=== PATIENT | female | born 1985 ===

== ENCOUNTER 2018-05-30 11:22 | Inpatient (IN) ==
[2018-05-30] MEDS ORDERED: fentaNYL Inj 100 MCG/2 ML VIAL IV PRN (13:26)
[2018-05-30] MEDS ORDERED: CITRIC ACID/SODIUM CITRATE 30 ML CUP PO PRN (13:26)
[2018-05-30] MEDS ORDERED: CefOXitin Inj 2 GM in Sodium Chloride 0.9% 100 ML IV PRN (13:26)
[2018-05-30] MEDS ORDERED: diphenhydrAMINE 50 MG/1 ML VIAL IVP PRN (13:26)
[2018-05-30] MEDS ORDERED: FAMOTIDINE 20 MG/2 ML VIAL IVP PRN ×2 (13:26)
[2018-05-30] MEDS ORDERED: LIDOCAINE HCL 2 % 10 ML JELLY URO-JECT TOPICAL PRN (13:26)
[2018-05-30] MEDS ORDERED: Lidocaine 1% 10 MG/ML - 20 ML VIAL SUBCUT PRN (13:26)
[2018-05-30] MEDS ORDERED: Phenylephrine Inj 50 MCG in Sodium Chloride 0.9% vial 0.5 ML IVP PRN (13:26)
[2018-05-30] MEDS ORDERED: ePHEDrine Inj 50 MG/ML AMP IVP PRN (13:26)
[2018-05-30] MEDS ORDERED: Carboprost Inj 250 MCG/ML AMP IM PRN (13:26)
[2018-05-30] MEDS ORDERED: TERBUTALINE SULFATE 1 MG/1 ML SDV SUBCUT PRN (13:26)
[2018-05-30] MEDS ORDERED: Metoclopramide Inj 10 MG/2 ML VIAL IV PRN (13:26)
[2018-05-30] MEDS ORDERED: LIDOCAINE W/ SODIUM BICARB 0.5 ML SYR SUBD PRN (13:26)
[2018-05-30] MEDS ORDERED: MISOPROSTOL 200 MCG TABLET RECTAL PRN (13:26)
[2018-05-30] MEDS ORDERED: Nalbuphine Inj 20 MG/ML Ampule IVP PRN (13:26)
[2018-05-30] MEDS ORDERED: ONDANSETRON 4 MG/2 ML VIAL IVP PRN (13:26)
[2018-05-30] MEDS ORDERED: CALCIUM CARBONATE 500 MG (TUMS) CHEWABLE TABLET PO PRN (13:26)
[2018-05-30] MEDS ORDERED: BUTORPHANOL TARTRATE 2 MG/1 ML VIAL IVP PRN (13:26)
[2018-05-30] MEDS ORDERED: NALOXONE 0.4 MG/1 ML VIAL IVP PRN (13:26)
[2018-05-30] MEDS ORDERED: Naloxone Inj 0.01 MG in Sodium Chloride 0.9% vial 1 ML IVP PRN (13:26)
[2018-05-30] MEDS ORDERED: METHYLERGONOVINE MALEATE 0.2 MG/1 ML VIAL IM PRN (13:26)
[2018-05-30] MEDS ORDERED: OXYTOCIN 10 UNIT/1 ML IM PRN (13:26)
[2018-05-30] MEDS ORDERED: Oxytocin 20 Units + LR 20 UNIT/1,000 ML BAG IV SCH (13:30)
[2018-05-30 14:42] LABS: Hematocrit [HCT] 35.6 % (37.0-47.0); Hemoglobin [HGB] 12.6 g/dL (12.0-16.0); MEAN CORPUSCULAR HEMOGLOBIN 32.5 PG (27-31); MEAN CORPUSCULAR HGB CONC 35.4 g/dL (33-37); MEAN CORPUSCULAR VOLUME 91.8 FL (81-99); RED BLOOD COUNT 3.88 10^6/uL (4.20-5.40)
[2018-05-30] MEDS: Lactated Ringers-OB Dept 1,000 ML PRIMARY IV SCH ×2 (17:34→18:23)
--- NOTE | 2018-05-30 17:47 | OB.PROGRES ---
Date of Service: 05/30/18 Time of Service: 17:45 Interval History: Pt was scheduled for an elective induction tonight, but states that she began yadira around 0145 this morning and they have become more painful. She has had a little bit of bloody discharge this morning. Denies any leakage or gushes of fluid. Baby has been moving normally. Otherwise, she is feeling well. Objective - Cervical Exam Cervical Exam: 4-5 cm/90/-1 [place]: irregular, every 3-5 minutes, palpating moderate. Heart Rate: 145, moderate variability, category 1 strip. Heart Rate Interpretation Category: Category I - Labs CBC and BMP: 05/30/18 14:40 - Vital Signs Last Taken Vital Signs: Vital Signs - Last Taken Temperature 98.4 F 05/30/18 11:51 Pulse Rate 79 05/30/18 11:51 Respiratory Rate 18 05/30/18 11:51 Blood Pressure 132/76 05/30/18 11:51 Pulse Ox 98 05/30/18 11:51 Assessment and Plan - Patient Problems (1) Term Current Visit: Yes Status: Acute Code(s): Z34.80 - Encounter for supervision of other normal , unspecified trimester - Assessment / Plan Additional Assessment/Plan Details: -laboring on her own, will continue close observation. -GBS negative. -pt wanting epidural for analgesia. -anticipate normal vaginal delivery.
[2018-05-30] MEDS ORDERED: Fent/Bupiv 2mcg/0.0625% Epid 250 ML ONE (17:51)
[2018-05-30] MEDS ORDERED: fentaNYL 2 MCG/BUPIVACAINE 0.0625%/NS 0.9% 250 ML BAG EPIDURAL ONE (19:31)
--- NOTE | 2018-05-30 19:31 | CRNA.PROCE ---
Central Neuraxis Block Placemt - - Safety Measures: Site Verified - - Type of Block: Epidural Reason for Block: Analgesia Moniters Used During Block: SPO2, NIBP Positioning: Sitting Skin Prep Used: Betadine (Times 3) Draped: Yes Skin Infiltration - Enter Amount Used in Comment Field: 1% Xylocaine (mL): Yes ( 1.5 ml) Spinal Needle Used: 18 Hustead 80 mm (GÉNESIS technique with saline) Local Anesthetic - Enter Amount Used in Comment Field: 1.5 % Xylocaine with Epinephrine 1:200,000 (mL): Yes (4.5 ml as test dose @ 1802) Number of Centimeters Catheter Threaded: 4 Bioclusive Dressing Applied: Yes (skin prep under all adhesive) - - Additional Details: spontaneous labor. Membranes intact. FHT monitoring reported to be reassuring. Delivered at @1030 vaginally on 05/31/18. Anesthesia Time - Other Weight: 86.727 kg Height: 5 ft 4 in Body Mass Index (BMI): 32.8
--- NOTE | 2018-05-30 19:33 | CRNA.PROGR ---
Anesthesia Time - Procedure/Recovery Time Start Date: 05/30/18 End Date: 05/31/18 Anesthesia : Time In: 17:50 Anesthesia : Time Out: 10:45 Anesthesia : Total Time: 1015 - Total Anesthesia Time Total Anesthesia Time (minutes): 1015 - Other Weight: 86.727 kg Height: 5 ft 4 in Body Mass Index (BMI): 32.8 Physical Status: P2 () Anesthesia Type: Epidural Obstetrics: Planned vaginal delivery w/ neuraxial labor anesthesia/analog
[2018-05-31] MEDS: Lactated Ringers-OB Dept 1,000 ML PRIMARY IV SCH ×2 (00:16→14:34)
[2018-05-31] MEDS ORDERED: ACETAMINOPHEN 325 MG TABLET PO ONE (07:06)
[2018-05-31 07:23] LABS: Hematocrit [HCT] 35.5 % (37.0-47.0); Hemoglobin [HGB] 12.3 g/dL (12.0-16.0); MEAN CORPUSCULAR HGB CONC 34.6 g/dL (33-37); MEAN CORPUSCULAR VOLUME 92.4 FL (81-99); MEAN PLATELET VOLUME 10.7 FL (7.4-12.2); RED BLOOD COUNT 3.84 10^6/uL (4.20-5.40)
[2018-05-31 07:40] LABS: BLOOD UREA NITROGEN 8 mg/dL (7-22); BUN/CREATININE RATIO 13.33 (6-20); SERUM ALBUMIN 3.1 g/dL (3.5-4.8); Uric Acid 5.1 mg/dl (2.5-6.2)
--- NOTE | 2018-05-31 08:59 | OB.PROGRES ---
Date of Service: 05/31/18 Time of Service: 08:30 Interval History: Comfortable with her epidural. Denies feeling any pelvic pressure. Did have a MARINELLI this morning that the pt thinks is related to lack of sleep and food. She was given 650 mg of tylenol. Objective - Cervical Exam Cervical Exam: 9/100/0; AROM with return of clear fluid. [place]: every 3-4 minutes, palpating hard. Heart Rate: 150, moderate variability, category 1 strip. Heart Rate Interpretation Category: Category I - Labs CBC and BMP: 05/31/18 07:20 05/31/18 07:20 - Vital Signs Last Taken Vital Signs: Vital Signs - Last Taken Temperature 97.6 F 05/31/18 04:00 Pulse Rate 80 05/31/18 07:21 Respiratory Rate 16 05/31/18 07:21 Blood Pressure 138/84 05/31/18 07:21 Pulse Ox 98 05/31/18 07:21 Assessment and Plan - Patient Problems (1) Term Current Visit: Yes Status: Acute Code(s): Z34.80 - Encounter for supervision of other normal , unspecified trimester - Assessment / Plan Additional Assessment/Plan Details: -GBS negative. -AROM completed with return of clear fluid. -comfortable with epidural -anticipate normal vaginal delivery.
--- NOTE | 2018-05-31 12:15 | OB.DEL.SUM ---
Delivery Note Delivery Summary: Pt is a 33 yo G2 now P1 at 39 1/7 weeks by early first trimester u/s who presented to labor and delivery with regular, painful contractions yesterday. She progressed on her own, with epidural anesthesia, to an anterior lip and 0 station early this morning. She underwent amniotomy this morning with the return of clear fluid. She was complete and +1 about an hour later. She began pushing around 1000 and, with excellent maternal effort, delivered a viable female infant, in the straight OA presentation at 1040. There was a nuchal cord x 1. No shoulder dystocia noted. The baby's nose and mouth were suctioned with the bulb suction and she was placed on mom's chest. After 45 seconds to allow for delayed cord clamping, the cord was doubly clamped by myself and cut by the father of the baby. Cord blood and cord gases were obtained. The placenta delivered spontaneously and intact, with a 3 vessel cord, at 1050. The vagina and perineum were examined and a second degree vaginal and perineal laceration was noted. The left side of the hymenal ring was noted to be avulsed, leaving a fairly large piece of tissue on the right side of her vagina. I asked Dr. Bradshaw to visualize the vagina and determine what was the best course of action. He recommended clamping the large piece of hymenal tissue and sharply removing it. This was done with good hemostasis. The remainder of the vaginal and perineal laceration was repaired in the normal fashion with 3-0 vicryl rapide suture. Two small bilateral periurethral lacerations were noted and hemostatic and thus not repaired. A rectal exam was completed to ensure there were no aberrant sutures inadvertently placed through the rectal mucosa and there were not. The pt's bladder was drained in a sterile fashion with iodine and a red rubber catheter. Apgars were 8 at 1 minute and 10 at 5 minutes. Baby weighed 6#15 oz and was 18 1/2 inches long. Both mom and baby are in stable condition at this time. - Patient Problems (1) Term Current Visit: Yes Status: Acute Code(s): Z34.80 - Encounter for supervision of other normal , unspecified trimester
[2018-05-31] MEDS ORDERED: ONDANSETRON 4 MG/2 ML VIAL IVP PRN (12:38)
[2018-05-31] MEDS ORDERED: DIPH,PERTUSS,TET(ADACEL) VAC/PF 0.5 ML (Tdap) IM ONE (12:38)
[2018-05-31] MEDS ORDERED: Nalbuphine Inj 20 MG/ML Ampule IVP PRN (12:38)
[2018-05-31] MEDS ORDERED: diphenhydrAMINE 50 MG/1 ML VIAL IVP PRN (12:38)
[2018-05-31] MEDS ORDERED: diphenhydrAMINE 25 MG CAPSULE PO PRN (12:38)
[2018-05-31] MEDS ORDERED: HYDROcodone-APAP 5 MG -325 MG TABLET PO PRN (12:38)
[2018-05-31] MEDS ORDERED: LIDOCAINE HCL 2 % 10 ML JELLY URO-JECT TOPICAL PRN (12:38)
[2018-05-31] MEDS ORDERED: BENZOCAINE/MENTHOL SPRAY 56 GM BOTTLE TOPICAL PRN (12:38)
[2018-05-31] MEDS ORDERED: GLYCERIN/WITCH HAZEL 1 BOX TOPICAL PRN (12:38)
[2018-05-31] MEDS ORDERED: MISOPROSTOL 200 MCG TABLET RECTAL ONE (12:38)
[2018-05-31] MEDS ORDERED: ACETAMINOPHEN 325 MG TABLET PO PRN (12:38)
[2018-05-31] MEDS ORDERED: CALCIUM CARBONATE 500 MG (TUMS) CHEWABLE TABLET PO PRN (12:38)
[2018-05-31] MEDS ORDERED: Oxytocin 20 Units + LR 20 UNIT/1,000 ML BAG IV SCH (12:38)
[2018-05-31] MEDS ORDERED: Ondansetron ODT Tab 4 MG TAB PO PRN (12:38)
[2018-05-31] MEDS: LANOLIN HPA 40 GM TUBE TOPICAL PRN (13:48)
[2018-05-31] MEDS: IBUPROFEN 800 MG TABLET PO PRN (18:28)
[2018-05-31] MEDS: DOCUSATE 100 MG CAPSULE PO SCH (21:31)
[2018-06-01 04:54] LABS: Hematocrit [HCT] 30.3 % (37.0-47.0); Hemoglobin [HGB] 10.2 g/dL (12.0-16.0); MEAN CORPUSCULAR HEMOGLOBIN 31.2 PG (27-31); MEAN CORPUSCULAR HGB CONC 33.7 g/dL (33-37); MEAN CORPUSCULAR VOLUME 92.7 FL (81-99); MEAN PLATELET VOLUME 11.3 FL (7.4-12.2); RED BLOOD COUNT 3.27 10^6/uL (4.20-5.40)
[2018-06-01 05:12] LABS: BLOOD UREA NITROGEN 7 mg/dL (7-22); BUN/CREATININE RATIO 11.66 (6-20); SERUM ALBUMIN 2.8 g/dL (3.5-4.8); Uric Acid 4.8 mg/dl (2.5-6.2)
[2018-06-01] MEDS: DOCUSATE 100 MG CAPSULE PO SCH ×2 (08:36→21:12)
[2018-06-01] MEDS: Prenatal Multivitamin Tab 1 TAB TAB PO SCH (08:36)
--- NOTE | 2018-06-01 11:34 | OB.PROGRES ---
Subjective Post Day: 1 Pain Management: PO Baker Catheter: No Flatus: Yes Lochia Color: Rubra/Red Moderate 25-50 ml Diet: Regular [place] Feeding Method: Exculsively Ambulating: Yes Objective - General General Appearance: POSITIVE: No Acute Distress, Cooperative - Cardiovacular Cardiovascular Exam: POSITIVE: RRR, No Murmur, No Clicks Edema: +1 Pedal Edema Extremities: Negative Judi's - Bilaterally - Respiratory Respiratory Exam: POSITIVE: Clear to Auscultation - Bilaterally, Breathing Non Labored Assesstment / Plan (1) Term Current Visit: Yes Status: Acute Assessment / Plan: -routine cares. -breast feeding going ok. -rubella immune. -rh positive. -possible d/c home this evening.
[2018-06-01] MEDS: FERROUS GLUCONATE 324 MG TABLET PO SCH (11:47)
[2018-06-02 05:23] VITALS: BP 115/67; RESP 18; TEMP 97.7; O2SAT 98
[2018-06-02] MEDS: IBUPROFEN 800 MG TABLET PO PRN (08:28)
[2018-06-02] MEDS: Prenatal Multivitamin Tab 1 TAB TAB PO SCH (08:28)
[2018-06-02] MEDS: FERROUS GLUCONATE 324 MG TABLET PO SCH (08:28)
[2018-06-02] MEDS: DOCUSATE 100 MG CAPSULE PO SCH (08:28)
[2018-06-02] MEDS: LANOLIN HPA 40 GM TUBE TOPICAL PRN (09:46)
--- NOTE | 2018-06-02 09:50 | DCSUMMARY ---
Hospitalization Summary Admit Date: 05/30/18 Discharge Date: 06/02/18 Primary Diagnosis:: IUP, 39 1/7 weeks Secondary Diagnosis:: same, delivered. Primary Surgery and Date: n/a Delivery Type: Vaginal Hospital Course: Pt was admitted in labor. She had an uneventful labor and delivery. For details of her delivery, please see separate note. Her course has also been uneventful. Her baby had high intermediate risk bilirubin level, so was kept overnoc for further testing this morning. Pt feels well, ambulating, tolerating regular diet, voiding without difficulty. Her perineum is less sensitive today. No bowel movement since delivery. / Postop Complications: none, see above. Complications: nothing significant, bilirubin level is in the high intermediate risk zone, no need for phototherapy at this time. Exam - Vitals Vital Signs: Vital Signs Temperature 97.7 F Temperature Source Axillary Pulse Rate [Apical] 74 Pulse Rate [Pulse Oximeter] 65 Pulse Rate 84 Respiratory Rate 18 Blood Pressure [Left Arm] 123/68 Blood Pressure [Right Arm] 115/67 Blood Pressure 129/87 Pulse Ox 98 Oxygen Delivery Method Room Air Height 5 ft 4 in Weight 191 lb 3.2 oz - General General Appearance: No Acute Distress, Cooperative - Head Head Exam: Normal Inspection - Eye Eye Exam: POSITIVE: Normal Appearance - Neck Neck Exam: Normal Inspection - Respiratory Respiratory Exam: POSITIVE: Clear to Auscultation - Bilaterally, Breathing Non Labored - Cardiovascular Cardiovascular Exam: POSITIVE: RRR, No Murmur - GI/Abdominal GI/Abdominal Exam: POSITIVE: Normal Bowel Sounds, Non Tender, Non Distended, Soft - Extremities Extremities Exam: POSITIVE: Normal Inspection, Full ROM, Normal Capillary Refill , +1 Edema - Back Back Exam: POSITIVE: Normal Inspection - Neurological Neurological Exam: POSITIVE: Alert, Oriented x 3 - Psychiatric Psychiatric Exam: POSITIVE: Normal Affect, Normal Mood - Integumentary Integumentary Exam: POSITIVE: Normal Color, Warm, Dry Patient Problems - Patient Problem List (1) Term Current Visit: Yes Status: Acute Code(s): Z34.80 - Encounter for supervision of other normal , unspecified trimester Category: Medical
== END 2018-06-02 12:15 | disposition home or self-care (01) | DRG 807 ==
LOC: OBOP 11:22 → OBIP 13:26
PROVIDERS: ADMIT Family Medicine; ATTEND Family Medicine